=== PATIENT | female | born 1965 | race African-American/Black ===

== ENCOUNTER 2018-11-20 22:11 | Emergency (ER) | payer BC ==
[~2018-11-20] VITALS: Ht 165.1 cm; Wt 81.6 kg
[2018-11-20] MEDS ORDERED: CYCLOBENZAPRINE10 MG PO (22:16)
[2018-11-20] MEDS ORDERED: MOBIC15 MG PO (22:16)
[2018-11-20] MEDS ORDERED: TOPROL XL25 MG PO (22:17)
[2018-11-20] MEDS ORDERED: AMLODIPINE BESYL5 MG PO (22:17)
[2018-11-21] MEDS ORDERED: METHOCARBAMOL500 M1 PO (00:55)
== END 2018-11-21 01:12 | disposition home or self-care (01) ==
LOC: ED 22:11
DX: M54.6 Pain in thoracic spine (principal); M62.830 Muscle spasm of back; G89.29 Other chronic pain; M54.5 Low back pain; I10 Essential (primary) hypertension; E78.5 Hyperlipidemia, unspecified; F17.200 Nicotine dependence, unspecified, uncomplicated; Z79.899 Other long term (current) drug therapy; Z88.0 Allergy status to penicillin; Z88.8 Allergy status to other drugs, medicaments and biological substances